=== PATIENT | male | born 1970 | race Caucasian/White ===

== ENCOUNTER 2016-11-12 13:10 | Emergency (ER) | payer BC ==
--- NOTE | 2016-11-12 13:56 | UC ---
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 Negative: Fever, Chills, Cough, Hoarseness, Throat Tightening, Bruising, Tenderness Related History: Possible Reaction to: Environmental Exposure - Allergy/Home Medications Allergies/Adverse Reactions: Allergies Allergy/AdvReac Type Severity Reaction Status Date / Time No Known Allergies Allergy Verified 12/19/15 16:14 Review of Systems Constitutional: Negative Skin: Rash Eyes: Negative ENT: Negative Respiratory: Negative Cardiovascular: Negative Gastrointestinal: Negative Genitourinary: Negative Motor: Negative Neurovascular: Negative Musculoskeletal: Negative Neurological: Negative Psychological: Negative All Other Systems Reviewed And Are Negative: Yes PMH/Surg Hx/FS Hx/Imm Hx - Surgical History Surgical History: Yes Surgery Procedure, Year, and Place: inguinal hernia as a baby - Family History Known Family History: Positive: Hypertension - Social History Alcohol Use: Occasionally Substance Use Type: None Smoking Status (MU): Never Smoked Tobacco Physical Exam Triage Information Reviewed: Yes Appearance: Well-Appearing, No Pain Distress, Well-Nourished Vital Signs: Initial Vital Signs Temp 98 F 11/12/16 13:25 Pulse 95 11/12/16 13:25 Resp 17 11/12/16 13:25 Pulse Ox 100 11/12/16 13:25 Vital Signs Reviewed: Yes Eye Exam: Normal ENT Exam: Normal ENT: Positive: Normal ENT inspection, TMs normal Dental Exam: Normal Neck exam: Normal Respiratory Exam: Normal Respiratory: Positive: Chest non-tender, Lungs clear, Normal breath sounds, No respiratory distress Cardiovascular Exam: Normal Cardiovascular: Positive: RRR, No Murmur Abdominal Exam: Normal Musculoskeletal Exam: Normal Musculoskeletal: Positive: Strength Intact, ROM Intact Neurological Exam: Normal Psychological Exam: Normal Skin: Positive: rashes Course/Dx - Differential Diagnoses - Skin Complaint Differential Diagnoses: Drug Rash, MRSA, Poison Dung, Poison [place], Tinea, Viral Exanthem - Diagnoses Provider Diagnoses: DIFFUSE POISON DUNG RASH Discharge - Discharge Plan Condition: Stable Disposition: HOME Prescriptions: predniSONE TAB* [Deltasone TAB*] 10 mg PO DAILY #30 tab Patient Education Materials: Poison Dung (ED) Referrals: Carlos Walters MD [Primary Care Provider] -
== END 2016-11-12 13:50 | disposition home or self-care (01) ==
LOC: UCEAST 13:10
DX: L23.7 Allergic contact dermatitis due to plants, except food (principal)
CPT/HCPCS: 99212; G0463

== ENCOUNTER 2017-06-20 17:14 | Emergency (ER) | payer BC ==
[2017-06-20 17:31] VITALS: BP 121/81
--- NOTE | 2017-06-20 17:36 | UC ---
Shoulder Pain HPI - HPI Summary HPI Summary: Pt presents with right shoulder pain. He tells me that he fell off a ladder earlier today and landed on his right shoulder. He has a history of rotator cuff partial tear to his LEFT shoulder and is worried that his right shoulder RTC is now damaged. He is having significant pain with flexion of his shoulder and reaching away from his body. He sees Orthopedics in [place] for his left shoulder and prefers to see them again, but wants an MRI done locally. He has not taken anything today for his pain. Denies numbness, tingling, or neck pain. - History of Current Complaint Chief Complaint: UCUpperExtremity Stated Complaint: SHOULDER INJURY Time Seen by Provider: 06/20/17 17:31 Hx Obtained From: Patient Onset/Duration: Sudden Onset Severity Initially: Moderate Severity Currently: Moderate Location Of Pain: Is Diffuse Pain Intensity: 5 Pain Scale Used: 0-10 Numeric Character: Dull, Aching, Stiffness Aggravating Factor(s): Movement, Lifting, Flexion Alleviating Factor(s): Rest - Allergies/Home Medications Allergies/Adverse Reactions: Allergies Allergy/AdvReac Type Severity Reaction Status Date / Time No Known Allergies Allergy Verified 12/19/15 16:14 Home Medications: Home Medications Ascorbic Acid TAB* [Vitamin C TAB*] 06/20/17 [History] PMH/Surg Hx/FS Hx/Imm Hx Previously Healthy: Yes - Surgical History Surgical History: Yes Surgery Procedure, Year, and Place: inguinal hernia as a baby - Family History Known Family History: Positive: Hypertension - Social History Occupation: Employed Full-time Lives: With Family Alcohol Use: Weekly Substance Use Type: None Smoking Status (MU): Never Smoked Tobacco Review of Systems Constitutional: Negative Skin: Negative Respiratory: Negative Cardiovascular: Negative Gastrointestinal: Negative Motor: Negative Neurovascular: Negative Musculoskeletal: Decreased ROM - Right shoulder, Other: - Right shoulder pain Neurological: Negative Psychological: Negative All Other Systems Reviewed And Are Negative: Yes Physical Exam Triage Information Reviewed: Yes Appearance: Well-Appearing, No Pain Distress, Well-Nourished Vital Signs: Initial Vital Signs Temp 98.1 F 06/20/17 17:23 Pulse 90 06/20/17 17:23 Resp 16 06/20/17 17:23 BP 121/81 06/20/17 17:23 Pulse Ox 96 06/20/17 17:23 Vital Signs Reviewed: Yes Neck: Positive: Supple, Other: - FROM. NTTP Respiratory: Positive: Lungs clear, Normal breath sounds, No respiratory distress, No accessory muscle use Cardiovascular: Positive: RRR, No Murmur, Pulses Normal - Right radial and ulnar Musculoskeletal: Positive: No Edema - Right shoulder, Strength Limited @ - Right shoulder flexion, extension, abduction, and adduction due to pain., ROM Limited @ - Right shoulder flexion due to pain, Other: - TTP over right deltoid and anterior shoulder. No jaky muscle. Unable to perform specialized tests due to pain and lack of ROM. Neurological: Positive: Alert, Other: - Sensations intact b/l UEs C4-T1 Psychological: Positive: Age Appropriate Behavior Skin: Negative: rashes, significant lesion(s) Shoulder Course/Dx - Course Course Of Treatment: Shoulder XR: IMPRESSION: NO ACUTE BONY FINDINGS. Suspect right shoulder contusion vs RTC injury. He is requesting an MRI today. I told him that here at we do not order MRIs, but we have patient's follow up with the necessary provider to further their evaluation. I suggested he see Orthopedics locally for an MRI and he was agreeable to this plan. Ibuprofen prn pain. - Differential Dx/Diagnosis Provider Diagnoses: Right shoulder pain Discharge - Discharge Plan Condition: Stable Disposition: HOME Patient Education Materials: Rotator Cuff Injury (ED), Shoulder Pain (ED) Referrals: Hemanth Vallejo MD [Primary Care Provider] - Juwan Padilla MD [Medical Doctor] - As Soon As Possible Additional Instructions: If you develop a fever, shortness of breath, chest pain, new or worsening symptoms - please call your PCP or go to the ED. 1) Rest and Ice your shoulder as much as possible over the next 24-48hours 2) Practice pendulum exercises as demonstrated in the clinic today 3) Please call Dr. Padilla at the number below to schedule a follow up appointment for further evaluation of your shoulder injury. 4) May take 600-800mg Ibuprofen every 6-8 hours as needed for pain
--- NOTE | 2017-06-20 18:16 | RAD ---
INDICATION: Right shoulder pain COMPARISON: None TECHNIQUE: AP, lateral, and oblique views were obtained. FINDINGS: The bony structures, joint spaces, and soft tissues are normal for age. IMPRESSION: NO ACUTE BONY FINDINGS
== END 2017-06-20 18:32 | disposition home or self-care (01) ==
LOC: UCEAST 17:14
DX: M25.511 Pain in right shoulder (principal)
CPT/HCPCS: 99211; G0463

== ENCOUNTER 2019-06-21 09:56 | Emergency (ER) | payer BC ==
[2019-06-21 10:15] VITALS: BP 122/85
--- NOTE | 2019-06-21 10:52 | UC ---
Shoulder Pain HPI - HPI Summary HPI Summary: slipped and fell on the ice about 1 an 1/2 hours ago landing on left shoulder-- does have a past history of minor rotor cuff tear left shoulder - History of Current Complaint Chief Complaint: UCUpperExtremity Stated Complaint: LEFT SHOULDER INJURY Time Seen by Provider: 06/21/19 10:45 Hx Obtained From: Patient Onset/Duration: Sudden Onset, Lasting Minutes - 90 Timing: Constant Location Of Pain: Is Discrete @ - left shoulder Pain Intensity: 6 - refused pain med Pain Scale Used: 0-10 Numeric Character: Aching, Throbbing Aggravating Factor(s): Movement Alleviating Factor(s): Rest Related History: Dominant Hand Right - Allergies/Home Medications Allergies/Adverse Reactions: Allergies Allergy/AdvReac Type Severity Reaction Status Date / Time No Known Allergies Allergy Verified 06/21/19 10:16 Home Medications: Home Medications NK [No Home Medications Reported] 06/21/19 [History Confirmed 06/21/19] PMH/Surg Hx/FS Hx/Imm Hx Previously Healthy: Yes - Surgical History Surgical History: Yes Surgery Procedure, Year, and Place: inguinal hernia as a baby. 2018 right shoulder surgery - Family History Known Family History: Positive: Hypertension - Social History Occupation: Employed Full-time Lives: With Family Alcohol Use: Occasionally Substance Use Type: None Smoking Status (MU): Never Smoked Tobacco Review of Systems All Other Systems Reviewed And Are Negative: Yes Constitutional: Positive: Negative Skin: Positive: Negative Eyes: Positive: Negative ENT: Positive: Negative Respiratory: Positive: Negative Cardiovascular: Positive: Negative Gastrointestinal: Positive: Negative Genitourinary: Positive: Negative Motor: Positive: Decreased ROM - left shoulder Neurovascular: Positive: Negative Musculoskeletal: Positive: Arthralgia - left shoulder Neurological/Mental Status: Positive: Negative Psychological: Positive: Negative Is Patient Immunocompromised?: No Physical Exam Triage Information Reviewed: Yes Appearance: Well-Appearing, No Pain Distress, Well-Nourished Vital Signs: Initial Vital Signs Temp 98 F 06/21/19 10:13 Pulse 83 06/21/19 10:13 Resp 16 06/21/19 10:13 BP 122/85 06/21/19 10:13 Pulse Ox 100 06/21/19 10:13 Vital Signs Reviewed: Yes Eye Exam: Normal Eyes: Positive: Conjunctiva Clear ENT Exam: Normal ENT: Positive: Normal ENT inspection, Hearing grossly normal. Negative: Trismus , Muffled voice, Hoarse voice Dental Exam: Normal Neck exam: Normal Neck: Positive: Supple, Nontender Respiratory Exam: Normal Respiratory: Positive: Chest non-tender, No respiratory distress, No accessory muscle use Cardiovascular Exam: Normal Cardiovascular: Positive: RRR, No Murmur, Pulses Normal, Brisk Capillary Refill Musculoskeletal Exam: Other Musculoskeletal: Positive: No Edema, Strength Limited @ - left shoulder, ROM Limited @ - left shoulder Neurological Exam: Normal Neurological: Positive: Alert, Muscle Tone Normal Psychological Exam: Normal Skin Exam: Normal Diagnostics - Radiology No standard instances Radiology Interpretation Completed By: Radiologist - no acute rebecca abnormalties --+calcofications Shoulder Course/Dx - Course Course Of Treatment: Sling, rice, follow with ortho this week - Differential Dx/Diagnosis Provider Diagnosis: Injury of left shoulder Discharge ED - Sign-Out/Discharge Documenting (check all that apply): Patient Departure All imaging exams completed and their final reports reviewed: Yes - Discharge Plan Condition: Stable Disposition: HOME Patient Education Materials: Rotator Cuff Injury (ED), R.I.C.E. Treatment (ED) Referrals: Kb Oliva DO [Primary Care Provider] - Additional Instructions: Follow with your orthopedic provider in [place] this week-- - Billing Disposition and Condition Condition: STABLE Disposition: Home
== END 2019-06-21 12:06 | disposition home or self-care (01) ==
LOC: UCEAST 09:56
DX: S49.92XA Unspecified injury of left shoulder and upper arm, initial encounter (principal); W00.0XXA Fall on same level due to ice and snow, initial encounter; Y92.9 Unspecified place or not applicable
CPT/HCPCS: 99212; G0463